=== PATIENT | female | born 1955 | race African-American/Black ===

== ENCOUNTER 2020-07-07 08:05 | Day surgery (SDC) | payer MEDICARE ==
[2020-07-06 09:34] VITALS: BMI 34.6
[~2020-07-07 08:05] MED LIST: LACTATED RINGERS 1,000 ML IV SCH; LIDOCAINE 1% (10MG/ML) FOR IV START INTRADERMA PRN
[2020-07-07 08:53] VITALS: TEMP 97
[2020-07-07] MEDS ORDERED: PROPOFOL 10 MG/ML 20 ML VIAL IV ONE (09:15)
[2020-07-07] MEDS ORDERED: IV FLUID CONTINUATION 1,000 ML IV ONE (09:34)
--- NOTE | 2020-07-07 09:43 | P.PCN ---
Date of Procedure: 07/07/20 Procedure(s) Performed: PREOPERATIVE DIAGNOSIS: Colon cancer screening POSTOPERATIVE DIAGNOSIS: Normal exam PROCEDURE: Colonoscopy ANESTHESIA: MAC SURGEON: Moy Gaines M.D. SPECIMENS: None ENDOSCOPIC PROCEDURE: The patient was placed on the endoscopy table in the left decubitus position. The Olympus colonoscope was inserted into the anus and passed under direct visualization to the base of the cecum. The appendiceal orifice was visualized. From that point the scope was slowly withdrawn inspecti ng all surfaces carefully. There were no neoplastic inflammatory or polypoid lesions throughout the cecum, ascending, transverse, descending, sigmoid and rectum. There was no visible diverticulosis noted. Digital rectal examination was normal. The patient was taken to the recovery room in stable condition per anesthesia guidelines. RECOMMENDATIONS: Resume diet. Follow-up colonoscopy in 10 years.
[2020-07-07 10:01] VITALS: BP 125/83; PULSE 67; RESP 18
== END 2020-07-07 10:14 | disposition home or self-care (01) ==
LOC: ORWHC2ENDO 08:05
PROVIDERS: ATTEND Surgery
DX: Z12.11 Encounter for screening for malignant neoplasm of colon (principal); E07.9 Disorder of thyroid, unspecified; Z79.890 Hormone replacement therapy; Z79.899 Other long term (current) drug therapy
CPT/HCPCS: J2704; G0121

== ENCOUNTER → 2020-10-26 | Outpatient (CLI) | payer MEDICARE ==
--- NOTE | 2020-10-26 12:12 | XR ---
EXAMINATION TYPE: XR shoulder complete RT DATE OF EXAM: 10/26/2020 COMPARISON: NONE HISTORY: Pain TECHNIQUE: Three views are submitted. FINDINGS: The osseous structures are intact. There is no acute fracture or dislocation. AC joint arthropathy. IMPRESSION: 1. AC joint arthropathy.
== END | disposition home or self-care (01) ==
LOC: RADXRMAIN 11:23
PROVIDERS: ATTEND Family Medicine
DX: M19.011 Primary osteoarthritis, right shoulder (principal)

== ENCOUNTER → 2021-04-26 | Outpatient (CLI) | payer MEDICARE ==
--- NOTE | 2021-04-26 13:13 | XR ---
Right knee HISTORY: Pain 3 views of the right knee Bone mineralization, joint spaces and alignment are remarkable for remodeling in the medial femoral c ompartment and joint space loss at the patellofemoral joint, there is spurring the medial femoral com partment and patellofemoral joint. No evident joint effusion. Enthesophyte present at the insertion o f the quadriceps tendon. Vague increased attenuation present at the level of Hoffa's fat pad on the l ateral exam may represent calcification but is indeterminate. Graph impression: Osteoarthritis and additional findings above.
== END | disposition home or self-care (01) ==
LOC: RADXRMAIN 12:50
PROVIDERS: ATTEND Family Medicine
DX: M17.11 Unilateral primary osteoarthritis, right knee (principal)

== ENCOUNTER 2021-10-10 21:08 | Emergency (ER) | payer MEDICARE ==
[2021-10-10] MEDS ORDERED: HYDROcodone/APAP 7.5-325MG 1 EACH TAB PO ONE (21:47)
--- NOTE | 2021-10-10 22:28 | XR ---
EXAMINATION TYPE: XR knee complete RT DATE OF EXAM: 10/10/2021 COMPARISON: NONE HISTORY: Knee pain TECHNIQUE: 3 views FINDINGS: There is spurring on the superior patella. Knee joint spaces are fairly normal. There is so ft tissue swelling on the medial aspect of the knee. No fracture seen. IMPRESSION: Soft tissue swelling. No fracture seen.
[2021-10-10] MEDS ORDERED: ACET/COD 300 MG/30 MG STARTER PACK 6 TAB BTL PO STA (22:37)
--- NOTE | 2021-10-10 22:45 | ED ---
Extremity Problem HPI - General Chief complaint: Extremity Problem,Nontraumatic Stated complaint: Right knee pain Time Seen by Provider: 10/10/21 21:39 Source: patient Mode of arrival: wheelchair - History of Present Illness Initial comments: Patient is a 65-year-old female presenting with chief complaint of right knee pain. Patient has pre-existing meniscus injury to that knee. 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 Patient is also wearing shoes with a slight heel, and carrying heavy bags. Patient states that today she has been unable to bear weight on her right knee due to the pain. She has limited range of motion secondary to pain. She denies any numbness, tingling, weakness. There is some swelling of the knee. Patient attends physical therapy for this knee. - Related Data Home Medications Medication Instructions Recorded Confirmed Cholecalciferol [Vitamin D3 (25 25 mcg PO DAILY 07/06/20 07/06/20 Mcg = 1000 Iu)] Levothyroxine Sodium [Synthroid] 125 mcg PO DAILY 07/06/20 07/06/20 Losartan/Hydrochlorothiazide 1 tab PO DAILY 07/06/20 07/06/20 [Losartan-Hctz 100-25 mg Tab] Turmeric Root Extract [Turmeric] 500 mg PO DAILY 07/06/20 07/06/20 Vitamin B Complex 1 each PO DAILY 07/06/20 07/06/20 Allergies Allergy/AdvReac Type Severity Reaction Status Date / Time No Known Allergies Allergy Verified 10/10/21 21:37 Review of Systems ROS Statement: Those systems with pertinent positive or pertinent negative responses have been documented in the HPI. ROS Other: All systems not noted in ROS Statement are negative. Past Medical History Past Medical History: Hypertension, Thyroid Disorder History of Any Multi-Drug Resistant Organisms: None Reported Additional Past Surgical History / Comment(s): colonoscopy, cyst removed from left side rib cage Past Anesthesia/Blood Transfusion Reactions: No Reported Reaction Smoking Status: Never smoker General Exam Limitations: no limitations General appearance: alert, in no apparent distress Head exam: Present: atraumatic, normocephalic, normal inspection Eye exam: Present: normal appearance, EOMI. Absent: scleral icterus, periorbital swelling Neck exam: Present: normal inspection Right Knee exam: Present: tenderness (Joint line), swelling. Absent: full ROM (Secondary to pain), erythema Neurovascular tendon exam: Present: no vascular compromise. Absent: motor deficit, sensory deficit Neurological exam: Present: alert, oriented X3, CN II-XII intact Psychiatric exam: Present: normal affect, normal mood Skin exam: Present: warm, dry, intact, normal color. Absent: rash Course Vital Signs 10/10/21 10/10/21 21:32 23:05 Temperature 98.4 F 98 F Pulse Rate 80 89 Respiratory 16 20 Rate Blood Pressure 163/98 138/78 O2 Sat by Pulse 97 97 Oximetry Medical Decision Making - Medical Decision Making Patient is a 65-year-old female presenting with chief complaint of right knee pain and swelling. Patient has pre-existing meniscus injury to this knee, she was much more active this weekend, wearing heels, and carrying heavy bags. On examination there are some swelling and tenderness along the joint line. Limited range of motion secondary to pain. X-ray shows soft tissue swelling with no fracture. Patient is placed in knee immobilizer and provided with crutches. Instructed on supportive treatment with Motrin, Tylenol, resting, icing, elevating. Follow-up with PCP and orthopedics. Report back to ER with any new or worsening symptoms. Discussed return parameters answered all questions. Patient conveyed verbal understanding and agreed to the plan. I discussed this case with my attending Dr. Cannon. Disposition Clinical Impression: Knee strain Disposition: HOME SELF-CARE Condition: Good Instructions (If sedation given, give patient instructions): Knee Pain (ED), Knee Immobilizer (ED) Additional Instructions: Follow-up with PCP and orthopedics. Report back to ER with any new or worsening symptoms. Motrin and Tylenol stated for pain control. Utilize knee immobilizer and crutches to remain nonweightbearing. Rest, ice, elevate the knee whenever possible for symptomatic relief. Is patient prescribed a controlled substance at d/c from ED?: No Referrals: Geovany Agosto [Primary Care Provider] - 1-2 days Betzaida Love DO [Doctor of Osteopathic Medicine] - 1-2 days Time of Disposition: 22:45
[2021-10-10 23:06] VITALS: BP 138/78; PULSE 89; RESP 20; TEMP 98
== END 2021-10-10 23:07 | disposition home or self-care (01) ==
LOC: EC 21:08
DX: S83.91XA Sprain of unspecified site of right knee, initial encounter (principal); I10 Essential (primary) hypertension; E07.9 Disorder of thyroid, unspecified; Z79.899 Other long term (current) drug therapy; X50.0XXA Overexertion from strenuous movement or load, initial encounter
CPT/HCPCS: 99283 ×2; 73562; L1830 ×2

== ENCOUNTER → 2022-05-04 | Outpatient (CLI) | payer MEDICARE ==
--- NOTE | 2022-05-04 15:13 | BD ---
EXAMINATION TYPE: Axial Bone Density DATE OF EXAM: 05/04/2022 CLINICAL HISTORY: 66 years old Female. ICD-10 CODE: Z78.0 Asymptomatic Menopause Height: 64" Weight: 204.2 FRAX RISK QUESTIONS: Alcohol (3 or more units per day): No Family History (Parent hip fracture): No Glucocorticoids (More than 3mos): No (Ex: prednisone, prednisolone, methylprednisolone, dexamethasone, and hydrocortisone). History of Fracture in Adulthood: No Secondary Osteoporosis: 1. Type 1 Diabetes: No 2. Hyperthyroidism: No 3. Menopause before 45: No 4. Malnutrition: No 5. Chronic liver disease: No Rheumatoid Arthritis: No Current Tobacco Use: No RISK FACTORS HISTORY OF: Hip Fracture (Right/Left): No Spine Fracture: No History of Wrist Fracture: No Surgery to Spine/Hip(right/left)/Wrist (right/left): No Family History of Osteoporosis: No Active: Yes Diet low in dairy products/other sources of calcium: No Postmenopausal woman: Yes Lost more than 2 inches in height since high school: No Frequent falls: Has fallen twice in the last year since pain in right knee began Poor Health: No Hyperparathyroidism: No Adrenal Insufficiency: No MEDICATIONS: Prednisone or other steroids: No Thyroid Medications: Yes Which medication: Levothyroxine How Lon years Osteoporosis Medications: No Additional Medications: Blood pressure, cholesterol meds, Vit D, Vit B Additional History: None EXAM MEASUREMENTS: Bone mineral densitometry was performed using the [employer] System. Bone mineral density as measured about the Lumbar spine is: ----- L1-L4(G/cm2): 1.312 T Score Values are as follows: ----- L1: 1.0 ----- L2: 0.2 ----- L3: 0.4 ----- L4: 2.1 ----- L1-L4: 1.1 Z Score Values are as follows: ----- L1: 11 ----- L2: 0.2 ----- L3: 0.4 ----- L4: 2.1 ----- L1-L4: 1.1 Baseline Bone mineral density about the R hip (g/cm2): 1.194 Bone mineral density about the L hip (g/cm2): 1.268 T Score values are as follows: -----R Neck: 1.1 -----L Neck: 0.9 -----R Total: 1.5 -----L Total: 2.1 Z Score values are as follows: -----R Neck: 1.1 -----L Neck: 1.0 -----R Total: 1.2 -----L Total: 1.8 Baseline FRAX%s: The graph provided illustrates a 2.4% chance for a major osteoporotic fx and a 0.0% chance fo r the hips probability for fx in 10 years time. IMPRESSION: Normal (Values between +1 and -1 indicate normal bone mass). Consider repeating this study in 5 year s or sooner if there is some new clinical indication. NOTE: T-SCORE=SD OF THE YOUNG ADULT MEAN.
--- NOTE | 2022-05-11 09:35 | MM ---
Reason for Exam: Screening (asymptomatic). Last mammogram was performed 3 year(s) and 3 month(s) ago. Patient History: Menarche at age 15. First Full-Term at age 17. Postmenopausal. Patient has history of breast feeding. Patient used Hormonal Contraceptives for 1 year. Risk Values: Octavia 5 year model risk: 1.1%. NCI Lifetime model risk: 3.8%. Prior Study Comparison: 05/12/2015 Bilateral Screening Mammogram, [place]. 01/17/2019 Bilateral Screening Mammogram, [place]. Tissue Density: The breast tissue is almost entirely fat. Findings: Analyzed By CAD. There is no suspicious group of microcalcifications or new suspicious mass in either breast. Overall Assessment: Negative, BI-RAD 1 Management: Screening Mammogram of both breasts in 1 year. A clinical breast exam by your physician is recommended on an annual basis and results should be correlated with mammographic findings. [facility] will attempt to contact patient to return for supplemental views and ultrasound if indicated. Electronically signed and approved by: Jason Ambrosio DO
== END | disposition home or self-care (01) ==
LOC: RADMAMWWP 14:00
PROVIDERS: ATTEND Family Medicine
DX: Z12.31 Encounter for screening mammogram for malignant neoplasm of breast (principal); Z78.0 Asymptomatic menopausal state
CPT/HCPCS: 77067; 77080